=== PATIENT | female | born 1990 | race Caucasian/White ===

== ENCOUNTER 2017-03-06 08:33 | Emergency (ER) | payer OTHER ==
[~2017-03-06] VITALS: Ht 160 cm; Wt 82.5 kg
[~2017-03-06 08:33] MED LIST: IBUP1TAB7 PO; ROBA500T PO
[2017-03-06 08:34] VITALS: BP 142/85; PULSE 79; RESP 16; TEMP 99.5; O2SAT 99
[2017-03-06] MEDS ORDERED: birth control PO (08:57)
[2017-03-06 10:11] LABS: AUTOMATED NEUTROPHIL # 6.5 TH/MM3 (1.8-7.7); BASOPHIL # 0.1 TH/MM3 (0-0.2); BASOPHIL % 0.7 % (0.0-2.0); EOSINOPHIL # 0.2 TH/MM3 (0-0.4); EOSINOPHIL % 2.2 % (0.0-4.0); HEMATOCRIT 37.8 % (35.0-46.0); HEMOGLOBIN 12.8 GM/DL (11.6-15.3); LYMPH % 21.9 % (9.0-44.0); LYMPHOCYTE # 2.1 TH/MM3 (1.0-4.8); MEAN CELL VOLUME 91.4 FL (80.0-100.0); MEAN CORPUSCULAR HEMOGLOBIN 30.9 PG (27.0-34.0); MEAN CORPUSCULAR HGB CONC 33.8 % (32.0-36.0); MEAN PLATELET VOLUME 8.5 FL (7.0-11.0); MONO % 6.2 % (0.0-8.0); MONOCYTE # 0.6 TH/MM3 (0-0.9); PLATELET COUNT 387 TH/MM3 (150-450); RED BLOOD COUNT 4.14 MIL/MM3 (4.00-5.30); RED CELL DISTRIBUTION WIDTH 13.8 % (11.6-17.2); WHITE BLOOD COUNT 9.4 TH/MM3 (4.0-11.0)
[2017-03-06 11:40] LABS: BACTERIA, URINE RARE /hpf; BILIRUBIN, URINE NEG (NEG); BLOOD, URINE NEG (NEG); GLUCOSE,URINE NEG (NEG); KETONE, URINE NEG (NEG); MUCUS URINE FEW /lpf (OCC); NITRITE,URINE NEG (NEG); SQUAMOUS EPITHELIAL CELL URINE 4 /hpf (0-5); URINE COLOR YELLOW (YELLW/STRAW); URINE LEUKOCYTE ESTERASE NEG (NEG)
[2017-03-06 12:22] LABS: BICARBONATE 25.5 MEQ/L (21.0-32.0); CALCIUM 9.1 MG/DL (8.5-10.1); CREATININE 0.63 MG/DL (0.50-1.00)
[2017-03-06 12:40] VITALS: BP 135/97; PULSE 70; RESP 17; O2SAT 99
--- NOTE | 2017-03-06 14:07 | PD ---
HPI Chief Complaint: Flank/Kidney Pain Time Seen by Provider: 09:38 Travel History International Travel<30 days: No Contact w/Intl Traveler<30days: No Traveled to known affect area: No History of Present Illness HPI This is a 26-year-old female who presents to the emergency department with left upper quadrant pain that's been going on for 2 days, intermittent, stabbing, nonradiating with no associated fevers, chills or vomiting. She says her last menstrual cycle was one week ago. She denies any diarrhea, dysuria, vaginal bleeding or vaginal discharge. She says that she was on Depo-Provera one year ago and ever since then her menstrual cycles been irregular. She takes OCPs but she did forget to take her control pills earlier this month. PFSH Past Medical History Diminished Hearing: No Respiratory: Yes (bronchitis) Immunizations Current: No Influenza Vaccination: No ?: Not Menopausal: No : 3 Para: 2 : 1 Past Surgical History Surgical History: No Previous Surgery Social History Alcohol Use: Yes (occassional) Tobacco Use: No Substance Use: Yes (marijuana 3-4 weeks ago) Allergies-Medications (Allergen,Severity, Reaction): Coded Allergies: No Known Allergies (Verified Adverse Reaction, Unknown, 03/06/17) Reported Meds & Prescriptions Reported Meds & Active Scripts Active ( Vit-Ferrous Fumarate) 27 Mg Iron-1 Mg Tab 1 Tab PO DAILY Reported [ control] 1 Tab PO DAILY Review of Systems Except as stated in HPI: all other systems reviewed are Neg Physical Exam Narrative GENERAL:Well appearing, no acute distress SKIN: Focused skin assessment warm and dry. HEAD: Atraumatic. Normocephalic. EYES: Pupils equal and round. No injection or drainage. ENT: Moist mucous membranes NECK: Trachea midline. CARDIOVASCULAR: Regular rate and rhythm. No murmur appreciated. RESPIRATORY: Clear to auscultation. Breath sounds equal bilaterally. GASTROINTESTINAL: Abdomen soft, non-tender, nondistended. MUSCULOSKELETAL: No obvious deformities. NEUROLOGICAL: Awake and alert. No obvious cranial nerve deficits. Moving all extremities. PSYCHIATRIC: Appropriate mood and affect; insight and judgment normal. Data Data Last Documented VS Vital Signs Date Time Temp Pulse Resp B/P (MAP) Pulse Ox O2 Delivery O2 Flow Rate FiO2 03/06/17 12:40 70 17 135/97 (110) 99 Room Air 03/06/17 08:34 99.5 Orders Orders Complete Blood Count With Diff (03/06/17 09:45) Basic Metabolic Panel (Bmp) (03/06/17 09:45) Beta Hcg (Quant/Titer) (03/06/17 09:45) Lipase (03/06/17 09:45) ^ Insert Iv (03/06/17 09:45) Urinalysis - C+S If Indicated (03/06/17 10:53) Ed Poc Ultrasound (03/06/17 ) Us Pelvis (Ques Pr/Ect)W Trans (03/06/17 ) Labs Laboratory Tests Test 03/06/17 09:55 03/06/17 10:45 03/06/17 11:10 White Blood Count 9.4 TH/MM3 Red Blood Count 4.14 MIL/MM3 Hemoglobin 12.8 GM/DL Hematocrit 37.8 % Mean Corpuscular Volume 91.4 FL Mean Corpuscular Hemoglobin 30.9 PG Mean Corpuscular Hemoglobin Concent 33.8 % Red Cell Distribution Width 13.8 % Platelet Count 387 TH/MM3 Mean Platelet Volume 8.5 FL Neutrophils (%) (Auto) 69.0 % Lymphocytes (%) (Auto) 21.9 % Monocytes (%) (Auto) 6.2 % Eosinophils (%) (Auto) 2.2 % Basophils (%) (Auto) 0.7 % Neutrophils # (Auto) 6.5 TH/MM3 Lymphocytes # (Auto) 2.1 TH/MM3 Monocytes # (Auto) 0.6 TH/MM3 Eosinophils # (Auto) 0.2 TH/MM3 Basophils # (Auto) 0.1 TH/MM3 CBC Comment DIFF FINAL Differential Comment Blood Urea Nitrogen 6 MG/DL Creatinine 0.63 MG/DL Random Glucose 103 MG/DL Calcium Level 9.1 MG/DL Sodium Level 139 MEQ/L Potassium Level 4.0 MEQ/L Chloride Level 106 MEQ/L Carbon Dioxide Level 25.5 MEQ/L Anion Gap 8 MEQ/L Estimat Glomerular Filtration Rate 114 ML/MIN Lipase 110 U/L Human Chorionic Gonadotropin, Quant 3331 MIU/ML Urine Color YELLOW Urine Turbidity CLEAR Urine pH 6.0 Urine Specific Mammoth 1.022 Urine Protein TRACE mg/dL Urine Glucose (UA) NEG mg/dL Urine Ketones NEG mg/dL Urine Occult Blood NEG Urine Nitrite NEG Urine Bilirubin NEG Urine Urobilinogen LESS THAN 2.0 MG/DL Urine Leukocyte Esterase NEG Urine RBC 1 /hpf Urine WBC 1 /hpf Urine Squamous Epithelial Cells 4 /hpf Urine Bacteria RARE /hpf Urine Mucus FEW /lpf Microscopic Urinalysis Comment CULT NOT INDICATED MDM Medical Decision Making Medical Screen Exam Complete: Yes Emergency Medical Condition: Yes Interpretation(s) Blood work is reassuring HCG is 3331 Pelvic ultrasound demonstrates early gestational sac Differential Diagnosis , pancreatitis, nephrolithiasis, urinary tract infection, pyelonephritis Narrative Course This is a 26 year old female who presents to the emergency department with left- sided abdominal pain. She appears very well and has a benign abdomen. HCG was found to be 3331. Pelvic ultrasound was obtained which demonstrates a gestational sac and I can appreciate a yolk sac on images. I don't suspect a surgical etiology of her symptoms given her benign exam. Patient will be discharged home to follow-up with price checker as an outpatient. Diagnosis Primary Impression: Intrauterine Patient Instructions: General Instructions Additional Instructions: If you develop severe or worsening abdominal pain, fever>100.4, persistent vomiting or inability to eat or drink return to the emergency department immediately. Follow up with [facility] at: Follow up with: [facility] [address] [place] [address]. [address] [place] [address] Office Hours Saturday - 9:00 am - 5:30 pm Saturday 8:00 am - 12:00 pm Tuesdays 4:00 - 6:30 pm Med/Other Pt SpecificInfo: Prescription(s) given Scripts Vit-Ferrous Fumarate () 27 Mg Iron-1 Mg Tab 1 TAB PO DAILY for Nutritional Supplement, #30 TAB 0 Refills Prov: Kat Bangura MD 03/06/17 Disposition: DISCHARGE HOME Condition: Stable Kat Bangura MD Mar 06, 2017 14:07
--- NOTE | 2017-03-06 15:45 | RADRPT ---
EXAM DATE/TIME: 03/06/2017 13:47 [facility] COMPARISON: No previous studies available for comparison. INDICATIONS : Left pelvic pain. LAB(S): Beta-hC,331 MEDICAL HISTORY : . SURGICAL HISTORY : None. ENCOUNTER: Initial ACUITY: 1 day PAIN SCORE: 8/10 LOCATION: Left pelvis MEASUREMENTS: UTERUS: 8.2 x 5.8 x 4.7 cm ENDOMETRIAL STRIPE: 13 mm RIGHT OVARY: 2.8 x 2.3 x 1.1 cm LEFT OVARY: 3.5x 2.7 x 1.5 cm FINDINGS: UTERUS: There is small apparent gestational sac within the uterus. I don't see cardiac activity is yet. RIGHT OVARY: Ovary contains no mass or significant cystic lesion. LEFT OVARY: 1.5 there is cystic mass left adnexa region. MISCELLANEOUS: No free fluid. CONCLUSION: Probably early IUP with gestational sac. Follow up suggested. There is no free flui d. Abdulaziz Dallas MD FACR on March 06, 2017 at 15:41 Board Certified Radiologist. This report was verified electronically.
[2017-03-06] MEDS ORDERED: TRICTAB PO ×2 (15:57→16:15)
[2017-03-06 16:22] VITALS: BP 134/89
== END 2017-03-06 16:24 | disposition home or self-care (01) ==
LOC: NEPD 08:33
DX: O26.891 Other specified pregnancy related conditions, first trimester (principal); R10.12 Left upper quadrant pain; Z34.91 Encounter for supervision of normal pregnancy, unspecified, first trimester
CPT/HCPCS: 76700; 76817; 80048; 81001; 83690; 84702; 85025

== ENCOUNTER → 2017-06-11 | Outpatient (CLI) | payer OTHER ==
[~2017-06-11] MED LIST changes: -IBUP1TAB7 PO; -ROBA500T PO; +TRICTAB PO; +birth control PO
== END ==
LOC: HPND 08:13
PROVIDERS: ATTEND Family Medicine
DX: O26.842 Uterine size-date discrepancy, second trimester (principal); Z36.3 Encounter for antenatal screening for malformations
CPT/HCPCS: 76805

== ENCOUNTER → 2017-07-23 | Outpatient (CLI) | payer MEDICAID, OTHER | LOC: HPND 08:04 | PROVIDERS: ATTEND Family Medicine | DX: O44.22 Partial placenta previa NOS or without hemorrhage, second trimester (principal) | CPT/HCPCS: 76816 ==

== ENCOUNTER 2017-10-10 14:10 | Inpatient (IN) ==
--- NOTE | 2017-10-10 16:23 | P.HPOB ---
History of Present Illness Primary Care Physician: No Primary Care Physician History of Present Illness: 27 yr G for P2012 at 37 weeks and 1 day gestation by first trimester ultrasound with history of gestational diabetes and oligohydramnios admitted for induction of labor. She has been receiving care with Dr. Morales. She reports complicating factors of this are gestational diabetes previously controlled diet and exercise and is a 4 days ago controlled with with glyburide. Endorses good movement. She denies leakage of fluid, vaginal bleeding, vaginal discharge. Reports that she is GBS positive. Ob Hx: Patient has had a total of 4 pregnancies, 2 of which is resulted into spontaneous vaginal births at term. Patient had one elective . PMHx: Gestational diabetes Surgical Hx: Dilation and suction 2007 Medications: Glyburide 2.5 mg daily and vitamins FHx: Father suffers from diabetes as well as maternal grandfather Social Hx: Patient is currently a station cashier at [employer], patient reports consuming alcohol during the first 3-4 weeks of her denies any use of tobacco or drugs of the duration of her . Allergies: Pollen - Inpatient Certification I certify that the inpatient services were ordered in accordance with Medicare regulations governing the order. This includes certification that hospital inpatient services are reasonable and necessary and in the case of services not specified as inpatient-only under 42 CFR 419.22(n), that they are appropriately provided as inpatient services in accordance to with the 2-midnight benchmark under 43 CFR 412.3(e) Review of Systems Constitutional: Denies chills, Denies fatigue, Denies fever(s), Denies headache( s), Denies dizziness, Denies recent illness Eyes: Denies change in vision, Denies double vision, Denies blurry vision, endorses every now and then closing her eyes and seeing some spots, she compared them to when you look at a light and close her eyes. This happens infrequently. It is not accompanied by any additional neurologic or visual symptoms. Cardiovascular: Denies chest pain, Denies fast heart rate, Denies rapid, pounding, or irregular heartbeat, Denies shortness of breath Respiratory: Denies shortness of breath or wheezing Gastrointestinal: Denies abdominal pain, Denies constipation, Denies loose stools, Denies nausea, Denies vomiting Genitourinary: Denies difficulty starting urination, Denies difficulty urinating , Denies painful urination, Denies urinary frequency, Denies pelvic pain, Denies urinary incontinence, Denies blood in urine OB: Endorses positive movement, Denies vaginal discharge or fluid PMFSH - History History Provided By: Patient - Medical History Medical History: Medical History (Last Updated 09/06/17 @ 08:27 by Kimberlee Samuel RN) Patient denies medical problems (Acute) - Surgical History Surgical History: Surgical History (Last Updated 09/06/17 @ 08:27 by Kimberlee Samuel RN) No history of previous surgery (Acute) - Tobacco History Smoking Status: Never smoker - Alcohol History How Often Do You Have a Drink Containing Alcohol: Never - Substance Use History Substance History: No History of Abuse - Travel History Recent Travel in the [place] Within the Last 8 Weeks: No Recent Travel Out of the Country Within the Last 8 Weeks: No Medications and Allergies Allergies Allergy/AdvReac Type Severity Reaction Status Date / Time No Known Allergies Allergy Verified 09/06/17 08:19 Home Medications Medication Instructions Recorded Confirmed Type Multi-Vitamins with Iron PO DAILY 09/06/17 History glyburide PO DAILY 10/10/17 History Exam Vital signs: Vital Signs 10/10/17 14:45 Temperature 98.1 F Pulse Rate 98 H Respiratory Rate 18 Blood Pressure 116/67 Intake & Output 10/09/17 10/10/17 10/10/17 18:59 06:59 18:59 Weight 91.777 kg Other: Weight On Admission 91.777 kg Narrative: GENERAL: Well-nourished, well-developed patient. SKIN: Warm and dry. HEAD: Normocephalic and atraumatic. EYES: No scleral icterus. No injection or drainage. ENT: No nasal drainage noted. Mucous membranes pink. Airway patent. NECK: Supple, trachea midline. No JVD. CARDIOVASCULAR: Regular rate and rhythm without murmurs, gallops, or rubs. RESPIRATORY: Breath sounds equal bilaterally. No accessory muscle use. ABDOMEN/GI: Abdomen soft, non-tender, bowel sounds present, no rebound, no guarding Gravid GENITOURINARY: External Genitalia: intact and normal in appearance Cervix: High Dilatation: Closed Effacement: 0 Station: -3 Membranes: Intact Uterine Contractions: None FHT's: Category: 2 Baseline: 150s Reactive: Yes Variability: Moderate Decels: Occasional decelerations approximately 2 every 10-20 minutes EXTREMITIES: No cyanosis or edema. BACK: Nontender without obvious deformity. No CVA tenderness. NEUROLOGICAL: Awake and alert. Moves all extremities without difficulty. Normal speech. Results - Labs CBC & Chem 7: 10/10/17 15:00 Labs: Laboratory Results - last 24 hr 10/10/17 15:57 POC Glucose 182 H Caprini VTE Risk Assessment Caprini VTE Risk Assessment: No/Low Risk (score <= 1) Caprini Risk Assessment Model: Point Value = 1 Point Value = 2 Point Value = 3 Point Value = 5 Age 41-60 Minor surgery BMI > 25 kg/m2 Swollen legs Varicose veins or History of unexplained or recurrent spontaneous Oral contraceptives or hormone replacement Sepsis (< 1 month) Serious lung disease, including pneumonia (< 1 month) Abnormal pulmonary function Acute myocardial infarction Congestive heart failure (< 1 month) History of inflammatory bowel disease Medical patient at bed rest Age 61-74 Arthroscopic surgery Major open surgery (> 45 min) Laparoscopic surgery (> 45 min) Malignancy Confined to bed (> 72 hours) Immobilizing plaster cast Central venous access Age >= 75 History of VTE Family history of VTE Factor V Leiden Prothrombin [id number] Lupus anticoagulant Anticardiolipin antibodies Elevated serum homocysteine Heparin-induced thrombocytopenia Other congenital or acquired thrombophilia Stroke (< 1 month) Elective arthroplasty Hip, pelvis, or leg fracture Acute spinal cord injury (< 1 month) Prophylaxis Regimen: Total Risk Factor Score Risk Level Prophylaxis Regimen 0-1 Low Early ambulation 2 Moderate Order ONE of the following: *Sequential Compression Device (SCD) *Heparin 5000 units SQ BID 3-4 Higher Order ONE of the following medications: *Heparin 5000 units SQ TID *Enoxaparin/Lovenox 40 mg SQ daily (WT < 150 kg, CrCl > 30 mL/min) *Enoxaparin/Lovenox 30 mg SQ daily (WT < 150 kg, CrCl > 10-29 mL/min) *Enoxaparin/Lovenox 30 mg SQ BID (WT < 150 kg, CrCl > 30 mL/min) AND/OR *Sequential Compression Device (SCD) 5 or more Highest Order ONE of the following medications: *Heparin 5000 units SQ TID (Preferred with Epidurals) *Enoxaparin/Lovenox 40 mg SQ daily (WT < 150 kg, CrCl > 30 mL/min) *Enoxaparin/Lovenox 30 mg SQ daily (WT < 150 kg, CrCl > 10-29 mL/min) *Enoxaparin/Lovenox 30 mg SQ BID (WT < 150 kg, CrCl > 30 mL/min) AND *Sequential Compression Device (SCD) Assessment and Plan - Plan 27 yr G for P2012 at 37 weeks and 1 day gestation by first trimester ultrasound with history of gestational diabetes and oligohydramnios admitted for induction of labor. Patient currently be induced at 37 weeks after finding of oligohydramnios on weekly biophysical profile. On physical patient's patient score was 8 2 indicating an unfavorable cervix. Patient started on Cervidil for cervical ripening. Patient previously a gestational diabetic controlled with diet and exercise until approximately 3-4 days ago when she was placed on glyburide. Bedside glucose stick was 189 after consuming a meal as well as a large glass of cranberry juice. At this point in time no indication for insulin drip. Continue to monitor patient's blood glucose. -Continue antepartum care -Penicillin G for positive GBS status -Cervical ripening with Cervidil for 12 hours -Monitor heart tones and maternal contractions -Lactated Ringer's at 125 mL/h -Frequent bedside glucose sticks
[2017-10-10] MEDS ORDERED: fentaNYL Citrate Inj 100 MCG/2 ML Ampul IV.PUSH PRN (16:28)
[2017-10-10] MEDS ORDERED: Naloxone Inj 0.4 MG/ML Vial IV.PUSH PRN (16:28)
[2017-10-10] MEDS ORDERED: Sodium Chlor 0.9% Inj 500 ML IV.SIG PRN (16:28)
[2017-10-10] MEDS ORDERED: Citric Acid/Sodium Citrate Liq 30 ML UDC PO SCH (16:30)
[2017-10-10] MEDS ORDERED: Penicillin G Potassium Inj 5,000,000 UNIT in Sodium Chloride 0.9% Inj 100 ML IV.SIG ONE (17:00)
[2017-10-10] MEDS ORDERED: Oxytocin 30 Units/500ml Premix 30 UNITS/500 ML BAG IV.SIG ONE (17:00)
[2017-10-10 17:35] LABS: Baso # (Auto) 0.1 th/mm3 (0.0-0.2); Baso % (Auto) 0.5 % (0.0-2.0); Eos # (Auto) 0.1 th/mm3 (0.0-0.4); Eos % (Auto) 1.2 % (0.0-4.0); Hematocrit 29.7 % (35.0-46.0); Hemoglobin 10.1 gm/dL (11.6-15.3); Lymph # (Auto) 1.6 th/mm3 (1.0-4.8); Lymph % (Auto) 17.2 % (9.0-44.0); Mean Corpuscular HGB Conc 34.1 % (32.0-36.0); Mean Corpuscular Volume 90.9 fL (80.0-100.0); Mean Platelet Volume 9.1 fL (7.0-11.0); Mono # (Auto) 0.6 th/mm3 (0.0-0.9); Mono % (Auto) 6.3 % (0.0-8.0); Neut % (Auto) 74.8 % (16.0-70.0); Platelet Count 314 th/mm3 (150-450); Red Blood Count 3.26 mil/mm3 (4.00-5.30); Red Cell Distribution Width 13.2 % (11.6-17.2); White Blood Count 9.4 th/mm3 (4.0-11.0)
[2017-10-10 17:37] LABS: Bacteria,Urine Occasional /hpf; Color,Urine Amber (Yellw/Straw); Glucose,Urine (UA) Negative (Negative); Leukocyte Esterase,Urine Trace (Negative); Mucus,Urine Many /lpf (Occasional); Nitrite,Urine Negative (Negative); Specific Gravity,Urine 1.027 (1.002-1.035); Squamous Epithelial Cell,Urine 17 /hpf (0-5); Urobilinogen,Urine 4 or Greater mg/dL (Less than 2)
[2017-10-10 17:40] LABS: Clarity,Urine Hazy (Clear)
[2017-10-10 17:42] LABS: Bilirubin,Urine Negative (Negative)
[2017-10-10 17:43] LABS: Amphetamine Urine With Conf Neg (Neg); Benzodiazepine Urine With Conf Neg (Neg)
--- NOTE | 2017-10-11 13:55 | P.OBLABOR ---
Subjective Interval history: Patient comfortable. No acute complaints. Denies any current contractions. Wishes to use birthing ball. Objective Vital Signs: Vital Signs - 8 hr 10/11/17 09:09 10/11/17 09:12 10/11/17 12:41 Temperature 98.4 F Pulse Rate 81 101 H Respiratory Rate 18 Blood Pressure 116/76 121/78 Objective: Pelvic Exam: Cervix: posterior Dilatation: 0 Effacement: 50% Station: -3 Presentation: vertex Membranes: intact Uterine Contractions: rare FHT's: Category: 1 Baseline: 150 Reactive: yes Variability: moderate Decels: none Assessment and Plan - Plan 27 yr G for P2012 at 37 weeks and 1 day gestation by first trimester ultrasound with history of gestational diabetes and oligohydramnios admitted for induction of labor. Patient currently be induced at 37 weeks after finding of oligohydramnios on weekly biophysical profile. On physical patient's patient score was 8 2 indicating an unfavorable cervix. Patient previously a gestational diabetic controlled with diet and exercise until approximately 3-4 days ago when she was placed on glyburide. -On cervidil overnight, no change, cytotec 25mg today Q4 hours -Monitor BG -Induction -Penicillin G for positive GBS status -Monitor heart tones and maternal contractions -Frequent bedside glucose sticks - Attending Attestation Patient seen, examined, and discussed with Dr Baker. I agree with assessment and management as documented and discussed with me. Provide Cytotec x 3 Q4 hours. Plan for pitocin afterward. GBS positive- will need PCN when in active labor.
[2017-10-11] MEDS ORDERED: Oxytocin 30 Units/500ml Premix 30 UNITS/500 ML BAG ONE (21:13)
[2017-10-11] MEDS ORDERED: Oxytocin 30 Units/500ml Premix 30 UNITS/500 ML BAG IV.SIG PRN (21:32)
[2017-10-12] MEDS: fentaNYL Citrate Inj 100 MCG/2 ML Ampul IV.PUSH PRN ×2 (01:14→12:03)
[2017-10-12] MEDS: Penicillin G Potassium Inj 2,500,000 UNIT in Sodium Chlor 0.9% Inj 100 ML IV.SIG SCH ×9 (01:37→23:40)
--- NOTE | 2017-10-12 09:42 | P.OBGPN ---
24-year-old 012 at 37 weeks 3 days gestation who is being induced her oligohydramnios. She received Cytotec following an unsuccessful response to Cervidil. She was started on Pitocin last night and is currently at 16 milliunits but perceiving very little contraction activity. Examination: Vital signs stable afebrile, category 1 heart rate with contractions every 3 minutes which are mild to palpation Cervix is 3 cm, 50% effaced, -3 station. Amniotomy demonstrated clear fluid and an IUPC was placed. Assessment: Day 3 of induction for oligohydramnios, blood sugars are stable Plan: Continue Pitocin.
[2017-10-12] MEDS ORDERED: Penicillin G Potassium Inj 2,500,000 UNIT in Sodium Chlor 0.9% Inj 100 ML IV.SIG SCH (10:00)
[2017-10-12] MEDS ORDERED: fentaNYL 2MCG-Bupiv 0.125% Epi 150 ML EPIDURAL ONE (13:12)
[2017-10-12] MEDS ORDERED: Lidocaaine 1.5%/Epinephrine 1:200,000 PF Inj 5 ML Amp ONE (13:19)
--- NOTE | 2017-10-12 13:20 | P.OBLABOR ---
Subjective Interval history: Pt feels contractions, uncomfortable AROM was done at 09:30. FHR category 1. Pt has IUPC with about 180 mv units strength, every 2 minutes, Pit at 16mu/min. SVE 3cm/70% effaced/ -2 station. Cervix is not stretchable. IUPC. PLAN: Term IOL Patient is ruptured and 3 cm dilated. Concern is for failed induction. Pt has not progressed sine exam at 9:30 am. status reassuring. Pt wants epidural Plan is to re-check in 2 hours. I have informed her that if there is no change at the time, we will move to deliver by C Section. Objective Objective: Pelvic Exam: Cervix: [-] Dilatation: [-] Effacement: [-] Station: [-] Presentation: [-] Membranes: [intact or ruptured] Uterine Contractions: [-] FHT's: Category: [-] Baseline: [-] Reactive: [-] Variability: [-] Decels: [-] Weeks Gestation: 37 Assessment and Plan - Plan 27 yr G for P2012 at 37 weeks and 1 day gestation by first trimester ultrasound with history of gestational diabetes and oligohydramnios admitted for induction of labor. Patient currently be induced at 37 weeks after finding of oligohydramnios on weekly biophysical profile. On physical patient's patient score was 8 2 indicating an unfavorable cervix. Patient previously a gestational diabetic controlled with diet and exercise until approximately 3-4 days ago when she was placed on glyburide. -On cervidil overnight, no change, cytotec 25mg today Q4 hours -Monitor BG -Induction -Penicillin G for positive GBS status -Monitor heart tones and maternal contractions -Frequent bedside glucose sticks
[2017-10-12] MEDS ORDERED: fentaNYL 2MCG-Bupiv 0.125% Epi 150 ML EPIDURAL PRN (14:11)
[2017-10-12] MEDS ORDERED: fentaNYL Citrate Inj 100 MCG/2 ML Ampul EPIDURAL ONE (14:11)
--- NOTE | 2017-10-12 15:22 | P.OBLABOR ---
Subjective Interval history: 27-year-old at 37+1 here for induction of labor due to oligohydramnios day 2. GBS positive. Patient is comfortable, feels contractions. Cervical check done at 1500. Patient progressed to 3-1/2-4 cm/70% effaced/-2 station. IUPC still placed. monitoring is reassuring at 145 bmp. Tocometer shows contractions occurring every 2 minutes, moderate variability, no decelerations: Category 1 tracing. Objective Vital Signs: Blood pressure: 121/76, temperature: 98.5, pulse: 79, oxygen sat: 100% on room air. Objective: Pelvic Exam: Cervix: [anterior] Dilatation: [3.5-4cm] Effacement: [70] Station: [-2] Presentation: [vertex] Membranes: [ AROM at 9:30] Uterine Contractions: [q2 mins] FHT's: Category: [1] Baseline: [145 bpm] Reactive: [yes] Variability: [moderate] Decels: [none] Weeks Gestation: 37 Patient Started Active Labor: Yes Active Labor Start Date: 10/12/17 Active Labor Start Time: 15:00 Medical Induction of Labor: Yes Medical Induction Start Date: 10/10/17 Artificial Rupture of Membrane: Yes Artificial ROM Date: 10/12/17 Artificial ROM Time: 09:30 Assessment and Plan - Plan 27 yr G for P2012 at 37 weeks and 1 day gestation by first trimester ultrasound with history of gestational diabetes and oligohydramnios admitted for induction of labor. Patient currently in active labor status post AROM at 9:30 AM. Category 1 tracing. heart rate reassuring. -Patient's cervix has changed from 3 cm to 3.5/4 cm over the past 2 hours. -On Pitocin 16 units, increased to 17 units. -Continue to monitor her heart tones and maternal contractions. -We will recheck patient's cervix in 2 hours, if cervical changes do not occur will deliver by . -Patient aware, and understands the plan moving forward. -Penicillin G for positive GBS status: Patient is received 2 doses of antibiotics. -Discussed with Dr. Gray and Dr. Parrish about plan moving forward.
--- NOTE | 2017-10-12 17:07 | P.OBLABOR ---
Subjective Interval history: 27-year-old at 37+1 here for induction of labor due to oligohydramnios day 2. GBS positive. Patient is comfortable, feels contractions. Cervical check done at 1700. Patient remains at 4 cm/70% effaced/-2 station. IUPC still placed. monitoring is reassuring at 145 bmp. Tocometer showed contractions occurring every 2 minute, moderate variability, no decelerations: Category 1 tracing. Objective Objective: Pelvic Exam: Cervix: [anterior] Dilatation: [4cm] Effacement: [70] Station: [-2] Presentation: [vertex] Membranes: [ AROM at 9:30] Uterine Contractions: [q2 mins] FHT's: Category: [1] Baseline: [140 bpm] Reactive: [yes] Variability: [moderate] Decels: [none] Weeks Gestation: 37 Patient Started Active Labor: Yes Active Labor Start Date: 10/12/17 Active Labor Start Time: 15:00 Medical Induction of Labor: Yes Medical Induction Start Date: 10/10/17 Artificial Rupture of Membrane: Yes Artificial ROM Date: 10/12/17 Artificial ROM Time: 09:30 Assessment and Plan - Plan 27 yr G for P2012 at 37 weeks and 1 day gestation by first trimester ultrasound with history of gestational diabetes and oligohydramnios admitted for induction of labor. Patient currently in active labor status post AROM at 9:30 AM. Category 1 tracing. heart rate reassuring. -Patient's cervix has remained at 4cm since last cervical check. No change. -Was on Pitocin 17 units, contractions started to occur every 1 minute, Pitocin was decreased to 10 units. -Contractions are now occurring every 2 minutes. -Continue to monitor her heart tones and maternal contractions. -We will recheck patient's cervix in 1 hours, if no cervical changes occur, will deliver by . -Patient aware, and understands the plan moving forward. -Penicillin G for positive GBS status: Patient is received 2 doses of antibiotics. -Discussed with Dr. Gray and Dr. Parrish about plan moving forward.
--- NOTE | 2017-10-12 18:25 | P.OBLABOR ---
Subjective Interval history: 27-year-old at 37+1 here for induction of labor due to oligohydramnios day 2. GBS positive. Patient is comfortable, feels contractions. Cervical check done at 1800. Patient remains at 4 cm/70% effaced/-2 station. IUPC still placed. monitoring is reassuring at 150 bmp. Tocometer showed contractions occurring every 3 minute, moderate variability, no decelerations: Category 1 tracing. Objective Objective: Pelvic Exam: Cervix: [anterior] Dilatation: [4cm] Effacement: [70] Station: [-2] Presentation: [vertex] Membranes: [ AROM at 9:30] Uterine Contractions: [q2 mins] FHT's: Category: [1] Baseline: [150 bpm] Reactive: [yes] Variability: [moderate] Decels: [none] Weeks Gestation: 37 Patient Started Active Labor: Yes Active Labor Start Date: 10/12/17 Active Labor Start Time: 15:00 Medical Induction of Labor: Yes Medical Induction Start Date: 10/09/17 Artificial Rupture of Membrane: Yes Artificial ROM Date: 10/12/17 Artificial ROM Time: 09:30 Assessment and Plan - Plan 27 yr G for P2012 at 37 weeks and 1 day gestation by first trimester ultrasound with history of gestational diabetes and oligohydramnios admitted for induction of labor. Patient currently in active labor status post AROM at 9:30 AM. Category 1 tracing. heart rate reassuring. -Arrest of dilation/Failure to Progress: No cervical change in the past two hours. - Patient's cervix has remained at 4cm since last cervical check. No change. -On Pitocin 10 units. Continue. -Contractions are occurring every 3 minutes. -Continue to monitor her heart tones and maternal contractions. -After a long discussion about the risks of arrest to dilation and the recommendation to deliver via , the patient has decided to continue to monitor her cervical changes over the next few hours and then will decide once she is rechecked in the next three hours if she will opt for a . -Penicillin G for positive GBS status: Patient is received 2 doses of antibiotics. -Discussed with Dr. Gray and Dr. Parrish about plan moving forward.
[2017-10-12] MEDS: Sod Chloride 0.9% Inj 1,000 ML IV.CONT PRN ×2 (18:59→19:00)
[2017-10-12] MEDS ORDERED: Citric Acid/Sodium Citrate Liq 30 ML UDC PO SCH (21:15)
[2017-10-12] MEDS ORDERED: Morphine Sulfate PF Inj 5 MG/10 ML Ampul ONE (21:19)
[2017-10-12] MEDS ORDERED: Phenylephrine/NS 1000 MCG/10ML Syringe IV.PUSH ONE (21:50)
[2017-10-12] MEDS ORDERED: Lidocaine 2%/Epinephrine 1:200,000 PF Inj 20 ML Vial INFILTRATN ONE (21:50)
[2017-10-12] MEDS ORDERED: ceFAZolin Inj 2,000 MG in Sodium Chlor 0.9% Inj 80 ML IV.SIG SCH ×2 (22:00→23:45)
[2017-10-12] MEDS ORDERED: Oxytocin 30 Units/500ml Premix 30 UNITS/500 ML BAG IV.SIG ONE (23:04)
[2017-10-12] MEDS ORDERED: Simethicone 80 MG Chew Tablet PO PRN (23:04)
--- NOTE | 2017-10-12 23:09 | P.OBDELI ---
<Archana Schmitz - Last Filed: 10/12/17 23:07> Procedure Note Performed by: Archana Schmitz MD, R2 Dr. Gray Procedure: Primary Low Transverse Section Indication for Delivery: Other (arrest of dilation) Informed Consent Obtained: For anesthesia, For procedure Confirmed Correct: Patient, Procedure, Site, Time-out taken Anesthesia: Epidural, Spinal Medication Prior to Procedure: As documented in eMAR Monitoring During Procedure: Blood pressure monitoring, equipment monitor phototypesetting, doppler, monitor, Pulse oximetry Urinary Catheter: Inserted using sterile technique Sterile Preparation: With 2% chlorexidine (Hibiclens) Position: Supine with wedge to left side - Operative Features Skin Incision: Pfannenstiel Uterine Incision: Low transverse w/knife / blunt ext Membranes Ruptured: Artificially, Previously Presentation: Occiput anterior Status of Infant: Viable, Cord blood, Umbilical cord, Nursery present Placenta Delivered: Intact Medications: Antibiotics, Oxytocin Estimated blood loss (mL): 600 Procedure Tolerated: Well Maternal Condition: Stable Baby Condition: Stable - Infant: Female (Female born at 22:00, 8/9) <David Gray - Last Filed: 10/13/17 00:00> Procedure Note - Pre Op Diagnosis (1) 37 weeks gestation of (2) Failure to progress in labor - Post Op Diagnosis (1) 37 weeks gestation of (2) Failure to progress in labor Performed by: David Gray MD - : Single Female A Delivery Date: 10/12/17 score (1 min): 8 score (5 min): 9
[2017-10-13] MEDS ORDERED: Oxytocin 30 Units/500ml Premix 30 UNITS/500 ML BAG ONE (00:06)
[2017-10-13] MEDS ORDERED: Naloxone Inj 0.4 MG/ML Vial IV.PUSH PRN (00:57)
[2017-10-13] MEDS ORDERED: Oxytocin 30 Units/500ml Premix 30 UNITS/500 ML BAG IV.SIG PRN (04:05)
[2017-10-13] MEDS: ceFAZolin Inj 2,000 MG in Sodium Chlor 0.9% Inj 80 ML IV.SIG SCH ×2 (05:02→13:33)
[2017-10-13 06:44] LABS: Baso % (Auto) 0.1 % (0.0-2.0); Hematocrit 29.2 % (35.0-46.0); Hemoglobin 9.7 gm/dL (11.6-15.3); Lymph # (Auto) 1.1 th/mm3 (1.0-4.8); Lymph % (Auto) 6.1 % (9.0-44.0); Mean Corpuscular HGB Conc 33.3 % (32.0-36.0); Mean Corpuscular Hemoglobin 30.4 pg (27.0-34.0); Mean Corpuscular Volume 91.3 fL (80.0-100.0); Mean Platelet Volume 8.8 fL (7.0-11.0); Mono # (Auto) 0.7 th/mm3 (0.0-0.9); Neut # (Auto) 15.9 th/mm3 (1.8-7.7); Neut % (Auto) 89.8 % (16.0-70.0); Platelet Count 273 th/mm3 (150-450); Red Cell Distribution Width 13.1 % (11.6-17.2); White Blood Count 17.8 th/mm3 (4.0-11.0)
--- NOTE | 2017-10-13 08:33 | P.PNOB ---
Subjective Post op day: 1 Interval history: No acute events overnight. Pt in lying in bed comfortably. Pain well-controlled on current medications. No fever/chills. Pt is not yet ambulating and still has arechiga in place. Denies any CP/SOB/dizzyness. Tolerating clear liquid diet, will advance. Objective Vital Signs/I&O: Vital Signs 10/12/17 21:30 10/12/17 23:15 10/12/17 23:19 Temperature 98.0 F Pulse Rate 62 88 70 Respiratory Rate 18 20 21 Blood Pressure 108/60 131/72 132/73 10/12/17 23:35 10/12/17 23:50 10/12/17 23:58 Temperature 98.5 F Pulse Rate 75 99 H Respiratory Rate 16 18 Blood Pressure 130/74 137/78 10/13/17 00:14 10/13/17 00:55 10/13/17 04:45 Temperature 98.5 F 98.5 F Pulse Rate 82 84 69 Respiratory Rate 18 16 18 Blood Pressure 131/75 133/84 137/76 Intake & Output 10/12/17 10/13/17 10/13/17 18:59 06:59 18:59 Intake Total 1200 / 1200 1000 / 1000 Balance 1200 / 1200 1000 / 1000 Intake: IV 1200 / 1200 1000 / 1000 LR 1000 mL Inj 1,000 ML @ 125 1000 / 1000 mls/hr IV.CONT .Q8H YAAKOV Rx#: [id number] NS Inj 1,000 ML @ 100 mls/hr IV 1000 / 1000 .CONT .Q10H PRN Rx#:[id number] Pfizerpen-G Inj 2,500,000 UNIT 200 / 200 In NS Inj 100 ML @ 200 mls/hr IV.SIG Q4H YAAKOV Rx#:[id number] Result Diagrams: 10/13/17 05:55 Objective Remarks: GENERAL: Well-nourished, well-developed patient. CARDIOVASCULAR: Regular rate and rhythm without murmurs, gallops, or rubs. RESPIRATORY: Breath sounds equal bilaterally. No accessory muscle use. ABDOMEN/GI: Abdomen soft, non-tender, bowel sounds present. Incision: Bandage intact (bandage stays 7 days), no drainage from bandage. No tenderness over incision Fundus: Firm, non-tender at umbilicus. GENITOURINARY: Light to moderate bleeding. EXTREMITIES: No cyanosis or edema, non-tender, without signs of DVT. Medications and IVs: Active Medications Citric Acid/Sodium Citrate (Sodium Citrate/Citric Acid Liq) 30 ml PO [facility] Stop: 10/14/17 16:29 Citric Acid/Sodium Citrate (Sodium Citrate/Citric Acid Liq) 30 ml PO [facility] Stop: 10/16/17 21:14 Diphenhydramine HCl (Benadryl Inj) 25 mg IV.PUSH Q6H PRN PRN Reason: MILD TO MODERATE ITCHING Stop: 10/13/17 21:59 Diphenhydramine HCl (Benadryl) 50 mg PO Q6H PRN PRN Reason: MILD TO MODERATE ITCHING Stop: 10/13/17 21:59 Diphtheria/Pertussis/Tetanus Vacc (Boostrix Vaccine Inj) 0.5 ml IM .ONCE ONE Stop: 10/13/17 16:01 Ephedrine Sulfate (Ephedrine/Ns Syringe) 10 mg IV.PUSH UNSCH PRN PRN Reason: SEE LABEL COMMENTS Stop: 10/13/17 14:11 Fentanyl Citrate (Fentanyl Inj) 50 mcg IV.PUSH Q1H PRN PRN Reason: Pain Scale 3 - 5 Fentanyl Citrate (Fentanyl Inj) 100 mcg IV.PUSH Q1H PRN PRN Reason: PAIN SCALE 6 TO 10 Last Admin: 10/12/17 12:03 Dose: 100 mcg Lactated Ringer's (Lr 1000 Ml Inj) 1,000 mls @ 125 mls/hr IV.CONT .Q8H [facility] Last Admin: 10/12/17 19:00 Dose: Not Given Lactated Ringer's (Lr 1000 Ml Inj) 1,000 mls @ 3,000 mls/hr IV.SIG UNSCH PRN PRN Reason: compromise or epidural Last Admin: 10/12/17 14:09 Dose: 3,000 mls/hr Sodium Chloride (Ns Inj) 500 mls @ 1,000 mls/hr IV.SIG UNSCH PRN PRN Reason: SEE LABEL COMMENTS Sodium Chloride (Ns Inj) 1,000 mls @ 100 mls/hr IV.CONT .Q10H PRN PRN Reason: SEE LABEL COMMENTS Last Infusion: 10/12/17 19:00 Dose: Infused Oxytocin (Pitocin 30 Units/Ns 500 Ml Premix) 30 units in 500 mls @ 2 mls/hr IV.SIG TITRATE PRN; Protocol PRN Reason: For induction of labor Last Admin: 10/11/17 21:49 Dose: 2 milliunit/min, 2 mls/hr Penicillin G Potassium 2,500, (000 unit/ Sodium Chloride) 100 mls @ 200 mls/hr IV.SIG Q4H [facility] Last Admin: 10/12/17 23:40 Dose: Not Given Fentanyl/Bupivacaine/Sodium Chlor (Fentanyl 2 Mcg-Bupiv 0.125% Epi) 150 mls @ 10 mls/hr EPIDURAL PRN PRN PRN Reason: for Labor Pain Last Admin: 10/12/17 16:40 Dose: 10 mls/hr Cefazolin Sodium 2,000 mg/ (Sodium Chloride) 100 mls @ 200 mls/hr IV.SIG [facility] Stop: 10/16/17 21:59 Lactated Ringer's (Lr 1000 Ml Inj) 1,000 mls @ 150 mls/hr IV.CONT .Q6H40M [facility] Last Admin: 10/12/17 23:40 Dose: 150 mls/hr Lactated Ringer's (Lr 1000 Ml Inj) 1,000 mls @ 100 mls/hr IV.CONT .Q10H [facility] Stop: 10/14/17 00:04 Oxytocin (Pitocin 30 Units/Ns 500 Ml Premix) 30 units in 500 mls @ 100 mls/hr IV.SIG UNSCH PRN PRN Reason: Heavy bleeding Cefazolin Sodium 2,000 mg/ (Sodium Chloride) 100 mls @ 200 mls/hr IV.SIG Q8H [facility] Stop: 10/13/17 12:29 Last Admin: 10/13/17 05:02 Dose: 200 mls/hr Ibuprofen (Motrin) 800 mg PO Q8H PRN PRN Reason: cramping Ketorolac Tromethamine (Toradol Inj) 30 mg IM Q6H PRN PRN Reason: SEE LABEL COMMENTS Stop: 10/17/17 23:03 Last Admin: 10/13/17 00:08 Dose: 30 mg Lidocaine HCl (Xylocaine 1% Inj) 0.1 ml I-DERMAL PRN PRN PRN Reason: For IV start Stop: 10/13/17 16:27 Measles/Mumps/Rubella Vaccine Live (M-M-R Ii Vaccine Inj) 0.5 ml SQ .ONCE ONE Stop: 10/13/17 16:01 Mineral Oil (Muri-Lube Oil) 10 ml TOPICAL PRN PRN PRN Reason: PRN perineal massage Miscellaneous Information (Misc Information) 1 each OTHER UNSCH PRN PRN Reason: SEE LABEL COMMENTS Stop: 10/13/17 14:11 Miscellaneous Information (Misc Information) 1 each OTHER UNSCH PRN PRN Reason: SEE LABEL COMMENTS Stop: 10/13/17 14:11 Miscellaneous Information (Misc Nursing Information) 1 each OTHER UNSCH PRN PRN Reason: SEE LABEL COMMENTS Stop: 10/13/17 21:59 Miscellaneous Information (Misc Nursing Information) 1 each OTHER UNSCH PRN PRN Reason: SEE LABEL COMMENTS Stop: 10/13/17 21:59 Naloxone HCl (Narcan Inj) 0.1 mg IV.PUSH Q2M PRN PRN Reason: for opiate reversal Naloxone HCl (Narcan Inj) 0.4 mg IV.PUSH UNSCH PRN PRN Reason: SEE LABEL COMMENTS Stop: 10/13/17 21:59 Ondansetron HCl (Zofran Inj) 4 mg IV.PUSH Q6H PRN PRN Reason: NAUSEA OR VOMITING Last Admin: 10/13/17 04:57 Dose: 4 mg Oxycodone/Acetaminophen (Percocet 5/325 Mg) 1 tab PO Q4H PRN PRN Reason: PAIN SCALE 3 TO 5 Oxycodone/Acetaminophen (Percocet 5/325 Mg) 2 tab PO Q4H PRN PRN Reason: PAIN SCALE 6 TO 10 Simethicone (Mylicon Chew) 80 mg PO QID PRN PRN Reason: FLATULENCE Sodium Chloride (Ns Flush) 2 ml IV.FLUSH BID [facility] Last Admin: 10/12/17 23:40 Dose: Not Given Sodium Chloride (Ns Flush) 2 ml IV.FLUSH UNSCH PRN PRN Reason: FLUSH AFTER USING IV ACCESS Sodium Chloride (Ns Flush) 2 ml IV.FLUSH PRN PRN PRN Reason: FLUSH AFTER USING IV ACCESS Sodium Chloride (Ns Flush) 2 ml IV.FLUSH BID [facility] Assessment and Plan - Plan 27 yr G for P2012 at 37 weeks and 1 day gestation by first trimester ultrasound with history of gestational diabetes and oligohydramnios admitted for induction of labor. POD#1 from c/s for failure to progress - Anemia: Hb 9.7, from 10.1 . f/u CBC in AM. Will plan to d/c on Fe daily - GDM: f/u BG - Advance diet as tolerated - Monitor for voids s/p arechiga - Cont regular ppm care - Contraception: Cont to discuss Nexplanon, other alternatives Case discussed w/
--- NOTE | 2017-10-13 13:30 | MP ---
cc: David Gray MD DATE OF OPERATION: 10/12/2017 PREOPERATIVE DIAGNOSES: 1. A 37 weeks and 4 days intrauterine . 1. Failure to progress. 2. Gestational diabetes. 3. Marked obesity. 4. Group B streptococcus positive. POSTOPERATIVE DIAGNOSES: 1. A 37 weeks and 4 days intrauterine . 1. Failure to progress. 2. Gestational diabetes. 3. Marked obesity. 4. Group B streptococcus positive. PROCEDURE PERFORMED: Primary low transverse section. SURGEON: David Gray MD TRAVELING AUDITOR: Archana Morales MD ANESTHESIA: Epidural and spinal. FINDINGS: Viable delivered from the direct occiput anterior position. The weight was 6 pounds. Apgars were 8 at 1 and 9 at 5. There was scant amniotic fluid. SPECIMEN: Nil. ESTIMATED BLOOD LOSS: 600 mL. COUNTS: Correct. DRAIN: Rodriguez catheter. The patient tolerated the procedure well and was transferred stable to recovery. DESCRIPTION OF PROCEDURE: The patient was brought into the operating room where she was properly identified and informed consent was confirmed. She was placed in the dorsal supine position with a slight leftward tilt. Epidural anesthesia was converted to spinal anesthesia. Rodriguez catheter previously inserted into the bladder and allowed to drain continuously throughout the case. She was then cleansed and draped in standard sterile fashion. After confirming adequacy of anesthesia, a Pfannenstiel incision was made with a scalpel and taken down through the subcutaneous tissues and Bovie cautery. The fascia was incised in the midline and extended bilaterally using curved Chacko scissors. The rectus fascia was then elevated from the underlying rectus muscles using 2 Juanjose forceps inferiorly of the incision. The rectus muscles were then in the midline and the underlying peritoneum was identified. This was tented upwards between 2 hemostats, sharply with Metzenbaum scissors and the peritoneal incision was then extended superiorly and inferiorly with careful visualization of the bladder. The bladder blade was then inserted and the inspection of the pelvic contents was done and findings as above was noted. The vesicouterine reflection of peritoneum was identified, tented up with pickups, and entered sharply with Metzenbaum scissors and then the bladder flap was entered sharply and extended bilaterally. The bladder flap was then created digitally and the bladder blade was repositioned. A fresh scalpel was then used to make an incision in the lower uterine segment. An amniotomy was done with clear fluid. The was delivered from the direct occiput anterior position. Cord was clamped and divided after delay and then was passed onto the attending maple syrup maker. The placenta and membranes were then delivered spontaneously, and the cavity of the uterus was cleaned of clots and debris. The uterus was then exteriorized. I then proceeded to close the uterus in three layers, the first with 0 Vicryl in a continuous locking fashion for hemostasis and the second with the same suture material that was used to imbricate the first. After confirming adequacy of hemostasis at the angles, the vesicouterine reflection of peritoneum was then reapproximated using a continuous suture of 2-0 Vicryl. The gutters were then cleansed of all clots and debris and the uterus was returned to its intraperitoneal location. Interceed adhesion barrier was then placed over the incision and the body of the uterus. The parietal peritoneum was then closed using continuous suture of 2-0 Vicryl and that same suture was used to reapproximate the edges of the rectus muscles in the midline. Rectus fascia was then closed using #1 PDS in a continuous fashion, after which the subcutaneous tissue was irrigated with warm saline, hemostasis was checked for and assured and then the space was then reapproximated using a continuous suture of 2-0 Polysorb. Finally, the skin was closed with 3-0 Monocryl in subcuticular fashion. The patient tolerated the procedure well and was transferred stable to recovery room. MD MACK Mcwilliams/sv/do , 09:49 AM , 10:02 AM
[2017-10-13] MEDS ORDERED: Diphtheria/Tetanus/Pertussis Vaccine Inj 0.5 ML Syringe IM ONE (16:00)
[2017-10-13] MEDS ORDERED: Measles/Mumps/Rubella Vaccine Inj 0.5 ML Vial SQ ONE (16:00)
--- NOTE | 2017-10-14 07:47 | P.PNOB ---
Subjective Post op day: 2 Interval history: Patient seen and examined bedside this morning. Patient doing well. Pain well controlled on current occasions. Patient is ambulating and voiding without difficulty. No fever/chills. No chest pain/shortness of breath/dizziness. Patient is passing gas, no BM yet. Objective Vital Signs/I&O: Vital Signs 10/13/17 15:00 10/13/17 20:50 Temperature 98.4 F 98.9 F Pulse Rate 73 65 Respiratory Rate 16 20 Blood Pressure 124/73 118/67 Result Diagrams: 10/14/17 07:05 Objective Remarks: GENERAL: Well-nourished, well-developed patient. CARDIOVASCULAR: Regular rate and rhythm without murmurs, gallops, or rubs. RESPIRATORY: Breath sounds equal bilaterally. No accessory muscle use. ABDOMEN/GI: Abdomen soft, non-tender, bowel sounds present. Incision: [address], no drainage from incision, no tenderness over incision. Fundus: Firm, non-tender at umbilicus. GENITOURINARY: Light to moderate bleeding. EXTREMITIES: No cyanosis or edema, non-tender, without signs of DVT. Medications and IVs: Active Medications Citric Acid/Sodium Citrate (Sodium Citrate/Citric Acid Liq) 30 ml PO [employer]MENT [employer]ENEFITS CLAIMS T[employer]ER [facility] Stop: 10/14/17 16:29 Citric Acid/Sodium Citrate (Sodium Citrate/Citric Acid Liq) 30 ml PO UN[employer]MENT BENEFITS CLAIMS [employer] [facility] Stop: 10/16/17 21:14 Fentanyl Citrate (Fentanyl Inj) 50 mcg IV.PUSH Q1H PRN PRN Reason: Pain Scale 3 - 5 Fentanyl Citrate (Fentanyl Inj) 100 mcg IV.PUSH Q1H PRN PRN Reason: PAIN SCALE 6 TO 10 Last Admin: 10/12/17 12:03 Dose: 100 mcg Lactated Ringer's (Lr 1000 Ml Inj) 1,000 mls @ 125 mls/hr IV.CONT .Q8H [facility] Last Admin: 10/14/17 07:37 Dose: Not Given Lactated Ringer's (Lr 1000 Ml Inj) 1,000 mls @ 3,000 mls/hr IV.SIG UNSCH PRN PRN Reason: compromise or epidural Last Admin: 10/12/17 14:09 Dose: 3,000 mls/hr Sodium Chloride (Ns Inj) 500 mls @ 1,000 mls/hr IV.SIG UNSCH PRN PRN Reason: SEE LABEL COMMENTS Sodium Chloride (Ns Inj) 1,000 mls @ 100 mls/hr IV.CONT .Q10H PRN PRN Reason: SEE LABEL COMMENTS Last Infusion: 10/12/17 19:00 Dose: Infused Oxytocin (Pitocin 30 Units/Ns 500 Ml Premix) 30 units in 500 mls @ 2 mls/hr IV.SIG TITRATE PRN; Protocol PRN Reason: For induction of labor Last Admin: 10/11/17 21:49 Dose: 2 milliunit/min, 2 mls/hr Fentanyl/Bupivacaine/Sodium Chlor (Fentanyl 2 Mcg-Bupiv 0.125% Epi) 150 mls @ 10 mls/hr EPIDURAL PRN PRN PRN Reason: for Labor Pain Last Admin: 10/12/17 16:40 Dose: 10 mls/hr Cefazolin Sodium 2,000 mg/ (Sodium Chloride) 100 mls @ 200 mls/hr IV.SIG UN[employer]MENT BENEFITS CLAIMS T[employer]ER [facility] Stop: 10/16/17 21:59 Lactated Ringer's (Lr 1000 Ml Inj) 1,000 mls @ 150 mls/hr IV.CONT .Q6H40M [facility] Last Admin: 10/14/17 07:37 Dose: Not Given Oxytocin (Pitocin 30 Units/Ns 500 Ml Premix) 30 units in 500 mls @ 100 mls/hr IV.SIG UNSCH PRN PRN Reason: Heavy bleeding Ibuprofen (Motrin) 800 mg PO Q8H PRN PRN Reason: cramping Last Admin: 10/14/17 05:16 Dose: 800 mg Ketorolac Tromethamine (Toradol Inj) 30 mg IM Q6H PRN PRN Reason: SEE LABEL COMMENTS Stop: 10/17/17 23:03 Last Admin: 10/13/17 09:30 Dose: 30 mg Mineral Oil (Muri-Lube Oil) 10 ml TOPICAL PRN PRN PRN Reason: PRN perineal massage Naloxone HCl (Narcan Inj) 0.1 mg IV.PUSH Q2M PRN PRN Reason: for opiate reversal Ondansetron HCl (Zofran Inj) 4 mg IV.PUSH Q6H PRN PRN Reason: NAUSEA OR VOMITING Last Admin: 10/13/17 04:57 Dose: 4 mg Oxycodone/Acetaminophen (Percocet 5/325 Mg) 1 tab PO Q4H PRN PRN Reason: PAIN SCALE 3 TO 5 Last Admin: 10/13/17 18:18 Dose: 1 tab Oxycodone/Acetaminophen (Percocet 5/325 Mg) 2 tab PO Q4H PRN PRN Reason: PAIN SCALE 6 TO 10 Last Admin: 10/14/17 05:15 Dose: 2 tab Simethicone (Mylicon Chew) 80 mg PO QID PRN PRN Reason: FLATULENCE Sodium Chloride (Ns Flush) 2 ml IV.FLUSH BID [facility] Last Admin: 10/14/17 00:09 Dose: Not Given Sodium Chloride (Ns Flush) 2 ml IV.FLUSH UNSCH PRN PRN Reason: FLUSH AFTER USING IV ACCESS Sodium Chloride (Ns Flush) 2 ml IV.FLUSH PRN PRN PRN Reason: FLUSH AFTER USING IV ACCESS Sodium Chloride (Ns Flush) 2 ml IV.FLUSH BID [facility] Last Admin: 10/14/17 00:09 Dose: Not Given Assessment and Plan - Plan 27 yr G for P2012 at 37 weeks and 1 day gestation by first trimester ultrasound with history of gestational diabetes and oligohydramnios admitted for induction of labor. POD#2 from c/s for failure to progress - Anemia: Hb 8.8, from 9.7 yesterday. f/u CBC in AM. Will plan to d/c on Fe daily - GDM: BG 83, 93, 69, 147, 98, 72 -Hemorrhoid: Increased fiber, increase fluids, stool softener, topical hydrocortisone for pain -Regular diet as tolerated - Cont regular ppm care - Contraception: Patient to call clinic tomorrow to schedule an Nexplanon insertion Discharge Planning: Anticipate DC tomorrow
[2017-10-14 07:57] LABS: Baso # (Auto) 0.1 th/mm3 (0.0-0.2); Baso % (Auto) 0.5 % (0.0-2.0); Eos # (Auto) 0.1 th/mm3 (0.0-0.4); Hematocrit 26.1 % (35.0-46.0); Hemoglobin 8.8 gm/dL (11.6-15.3); Lymph # (Auto) 2.2 th/mm3 (1.0-4.8); Lymph % (Auto) 20.6 % (9.0-44.0); Mean Corpuscular HGB Conc 33.9 % (32.0-36.0); Mean Corpuscular Volume 91.5 fL (80.0-100.0); Mean Platelet Volume 9.1 fL (7.0-11.0); Mono % (Auto) 9.8 % (0.0-8.0); Neut # (Auto) 7.3 th/mm3 (1.8-7.7); Neut % (Auto) 68.1 % (16.0-70.0); Platelet Count 284 th/mm3 (150-450); Red Blood Count 2.85 mil/mm3 (4.00-5.30); Red Cell Distribution Width 13.2 % (11.6-17.2); White Blood Count 10.7 th/mm3 (4.0-11.0)
[2017-10-14 09:09] VITALS: RESP 18
[2017-10-14] MEDS: Docusate Sodium 100 MG Capsule PO SCH ×2 (11:02→21:09)
[2017-10-14 20:15] VITALS: BP 148/83; PULSE 93
[2017-10-14 20:16] VITALS: TEMP 98.3
[2017-10-15 06:49] LABS: Baso % (Auto) 0.7 % (0.0-2.0); Eos # (Auto) 0.2 th/mm3 (0.0-0.4); Eos % (Auto) 2.6 % (0.0-4.0); Hematocrit 26.6 % (35.0-46.0); Hemoglobin 8.8 gm/dL (11.6-15.3); Lymph # (Auto) 1.9 th/mm3 (1.0-4.8); Lymph % (Auto) 26.8 % (9.0-44.0); Mean Corpuscular HGB Conc 33.3 % (32.0-36.0); Mean Corpuscular Hemoglobin 30.7 pg (27.0-34.0); Mean Corpuscular Volume 92.3 fL (80.0-100.0); Mean Platelet Volume 8.7 fL (7.0-11.0); Mono # (Auto) 0.6 th/mm3 (0.0-0.9); Mono % (Auto) 8.3 % (0.0-8.0); Neut # (Auto) 4.3 th/mm3 (1.8-7.7); Neut % (Auto) 61.6 % (16.0-70.0); Platelet Count 296 th/mm3 (150-450); Red Blood Count 2.88 mil/mm3 (4.00-5.30); Red Cell Distribution Width 13.4 % (11.6-17.2); White Blood Count 7.1 th/mm3 (4.0-11.0)
[2017-10-15] MEDS: Docusate Sodium 100 MG Capsule PO SCH (08:40)
--- NOTE | 2017-10-15 10:20 | P.PNOB ---
Subjective Post op day: 3 Interval history: Patient seen and examined bedside this morning. No acute events overnight. Eating and drinking without difficulty. Pain well controlled on current medications. Patient is passing gas, no bowel movements yet. Denies any chest pain, shortness of breath, dizziness. No calf tenderness. Objective Vital Signs/I&O: Vital Signs 10/14/17 20:00 Temperature 98.3 F Pulse Rate 93 H Respiratory Rate 18 Blood Pressure 148/83 H Result Diagrams: 10/15/17 05:45 Objective Remarks: GENERAL: Well-nourished, well-developed patient. CARDIOVASCULAR: Regular rate and rhythm without murmurs, gallops, or rubs. RESPIRATORY: Breath sounds equal bilaterally. No accessory muscle use. ABDOMEN/GI: Abdomen soft, non-tender, bowel sounds present. Incision: Seven-day bandage in place, damp from shower. Clean, dry and intact. Fundus: Firm, non-tender at umbilicus. GENITOURINARY: Light to moderate bleeding. EXTREMITIES: No cyanosis or edema, non-tender, without signs of DVT. Medications and IVs: Active Medications Al Hydroxide/Mg Hydroxide (Milk Of Magnesia Liq) 30 ml PO DAILY [facility] Last Admin: 10/14/17 11:02 Dose: 30 ml Citric Acid/Sodium Citrate (Sodium Citrate/Citric Acid Liq) 30 ml PO MANAGER COMBINATION [facility] Stop: 10/16/17 21:14 Docusate Sodium (Colace) 100 mg PO BID [facility] Last Admin: 10/15/17 08:40 Dose: 100 mg Fentanyl Citrate (Fentanyl Inj) 50 mcg IV.PUSH Q1H PRN PRN Reason: Pain Scale 3 - 5 Fentanyl Citrate (Fentanyl Inj) 100 mcg IV.PUSH Q1H PRN PRN Reason: PAIN SCALE 6 TO 10 Last Admin: 10/12/17 12:03 Dose: 100 mcg Hydrocortisone Acetate (Anusol-Hc) 1 applicatio RECTAL TID [facility] Last Admin: 10/14/17 17:12 Dose: 1 applicatio Lactated Ringer's (Lr 1000 Ml Inj) 1,000 mls @ 125 mls/hr IV.CONT .Q8H [facility] Last Admin: 10/15/17 04:23 Dose: Not Given Lactated Ringer's (Lr 1000 Ml Inj) 1,000 mls @ 3,000 mls/hr IV.SIG UNSCH PRN PRN Reason: compromise or epidural Last Admin: 10/12/17 14:09 Dose: 3,000 mls/hr Sodium Chloride (Ns Inj) 500 mls @ 1,000 mls/hr IV.SIG UNSCH PRN PRN Reason: SEE LABEL COMMENTS Sodium Chloride (Ns Inj) 1,000 mls @ 100 mls/hr IV.CONT .Q10H PRN PRN Reason: SEE LABEL COMMENTS Last Infusion: 10/12/17 19:00 Dose: Infused Oxytocin (Pitocin 30 Units/Ns 500 Ml Premix) 30 units in 500 mls @ 2 mls/hr IV.SIG TITRATE PRN; Protocol PRN Reason: For induction of labor Last Admin: 10/11/17 21:49 Dose: 2 milliunit/min, 2 mls/hr Fentanyl/Bupivacaine/Sodium Chlor (Fentanyl 2 Mcg-Bupiv 0.125% Epi) 150 mls @ 10 mls/hr EPIDURAL PRN PRN PRN Reason: for Labor Pain Last Admin: 10/12/17 16:40 Dose: 10 mls/hr Cefazolin Sodium 2,000 mg/ (Sodium Chloride) 100 mls @ 200 mls/hr IV.SIG [employer]NAGER COMBINATION [facility] Stop: 10/16/17 21:59 Lactated Ringer's (Lr 1000 Ml Inj) 1,000 mls @ 150 mls/hr IV.CONT .Q6H40M [facility] Last Admin: 10/15/17 04:23 Dose: Not Given Oxytocin (Pitocin 30 Units/Ns 500 Ml Premix) 30 units in 500 mls @ 100 mls/hr IV.SIG UNSCH PRN PRN Reason: Heavy bleeding Ibuprofen (Motrin) 800 mg PO Q8H PRN PRN Reason: cramping Last Admin: 10/15/17 05:56 Dose: 800 mg Ketorolac Tromethamine (Toradol Inj) 30 mg IM Q6H PRN PRN Reason: SEE LABEL COMMENTS Stop: 10/17/17 23:03 Last Admin: 10/13/17 09:30 Dose: 30 mg Mineral Oil (Muri-Lube Oil) 10 ml TOPICAL PRN PRN PRN Reason: PRN perineal massage Naloxone HCl (Narcan Inj) 0.1 mg IV.PUSH Q2M PRN PRN Reason: for opiate reversal Ondansetron HCl (Zofran Inj) 4 mg IV.PUSH Q6H PRN PRN Reason: NAUSEA OR VOMITING Last Admin: 10/13/17 04:57 Dose: 4 mg Oxycodone/Acetaminophen (Percocet 5/325 Mg) 1 tab PO Q4H PRN PRN Reason: PAIN SCALE 3 TO 5 Last Admin: 10/13/17 18:18 Dose: 1 tab Oxycodone/Acetaminophen (Percocet 5/325 Mg) 2 tab PO Q4H PRN PRN Reason: PAIN SCALE 6 TO 10 Last Admin: 10/15/17 05:55 Dose: 2 tab Simethicone (Mylicon Chew) 80 mg PO QID PRN PRN Reason: FLATULENCE Sodium Chloride (Ns Flush) 2 ml IV.FLUSH BID [facility] Last Admin: 10/14/17 21:10 Dose: Not Given Sodium Chloride (Ns Flush) 2 ml IV.FLUSH UNSCH PRN PRN Reason: FLUSH AFTER USING IV ACCESS Sodium Chloride (Ns Flush) 2 ml IV.FLUSH PRN PRN PRN Reason: FLUSH AFTER USING IV ACCESS Sodium Chloride (Ns Flush) 2 ml IV.FLUSH BID [facility] Last Admin: 10/14/17 21:10 Dose: Not Given Assessment and Plan - Plan 27 yr G for P2012 at 37 weeks and 1 day gestation by first trimester ultrasound with history of gestational diabetes and oligohydramnios admitted for induction of labor. POD#2 from c/s for failure to progress - Anemia: Hemoglobin on admission 10.1. Hb 8.8, stable from 8.8 yesterday. f/ u CBC in AM. Will DC on FE/vitamin C/Colace daily, discussed with Dr. Gray - GDM: BG 83, 93, 69, 147, 98, 72, 81 -Hemorrhoid: Increased fiber, increase fluids, stool softener, topical hydrocortisone for pain -Regular diet -Okay to DC with follow-up in 1 week for bandage removal, follow-up in 6 weeks for visit - Contraception: Patient to call clinic today to schedule an Nexplanon insertion Discharge Planning: Anticipate DC today - Attending Attestation The exam, history, and the medical decision-making described in the above note were completed with the assistance of the resident physician. I reviewed and agree with the findings presented. I attest that I had a [id number] encounter with the patient on the same day, and personally performed and documented my assessment and findings in the medical record.
== END 2017-10-15 13:14 | disposition home or self-care (01) ==
LOC: H2E 14:10 → H1EA 10-13 00:39
PROVIDERS: ADMIT Obstetrics & Gynecology; ATTEND Obstetrics & Gynecology